=== PATIENT | male | born 1980 | race Caucasian/White ===

== ENCOUNTER → 2020-11-02 15:58 | Outpatient (CLI) | payer BC, SELFPAY ==
--- NOTE | ~2020-11-02 | XR_ITS ---
XR hand LT min 3V 11/02/2020 16:16 INDICATION: Left fourth finger pain PROCEDURE: 3 views left hand COMPARISON: No prior studies for comparison. FINDINGS: Fracture, dislocation or subluxation is not identified. The soft tissues appear within norm al limits. No foreign bodies are identified. IMPRESSION: 1: NO ACUTE BONE OR JOINT ABNORMALITY IDENTIFIED. Reviewed, dictated and finalized at location B.
== END ==
PROVIDERS: PCP Internal Medicine; Visit Provider Clinical Nurse Specialist
DX: M79.645 Pain in left finger(s) (principal)
CPT/HCPCS: 73130

== ENCOUNTER → 2020-11-20 09:18 | Outpatient (CLI) | payer BC, SELFPAY ==
--- NOTE | ~2020-11-20 | MR_ITS ---
EXAMINATION: MR hand LT wo con DATE: 11/20/2020 10:07 INDICATION: Left hand fourth digit pain and swelling. TECHNIQUE: Magnetic resonance imaging (MRI) of the left hand was performed without intravenous contra st. Sequences included axial, coronal, and sagittal T2-weighted FS FSE and T1-weighted FSE. COMPARISON: Left hand radiographs 11/02/2020 FINDINGS: Bone alignment is normal. No fracture. There is a 5 mm lesion of increased T2-weighted sign al intensity in trapezoid, likely a benign fibrous lesion. The joint spaces are normal. At the fourth digit, there is bowstringing of the flexor digitorum profundus tendon at the diaphysis of the middle phalanx. The tendon substance is normal. The A4 andres demonstrates thickening and increased signal in this area. The extensor tendons are normal. IMPRESSION: 1. A4 andres injury of the left hand fourth digit with bowstringing of the flexor digitorum profundus tendon. Reviewed, dictated and finalized at location A. IMPRESSION: 1. A4 andres injury of the left hand fourth digit with bowstringing of the flex or digitorum profundus tendon.
== END ==
PROVIDERS: PCP Internal Medicine; Visit Provider Clinical Nurse Specialist
DX: M79.645 Pain in left finger(s) (principal)
CPT/HCPCS: 73218

== ENCOUNTER 2021-03-08 07:30 | Outpatient (RCR) | payer BC, SELFPAY ==
--- NOTE | 2021-03-08 09:00 | OTOPEVAL ---
OCCUPATIONAL THERAPY INITIAL EVALUATION/DISCHARGE SUMMARY: 03/08/2021 Thank you for referring Kartik Patel to [facility].? As noted below, skilled OT not indicated at this time. Plan to discharge patient independent with HEP material. Please review, sign, date and return this plan of care JUDY. I agree with and certify that the following plan of care is medically necessary. Referring Physician Date Attending Provider: Ada Hagen NP *OT Outpatient Evaluation/Discharge Summary Start: 03/07/21 07:43 Freq: Status: Active Protocol: Document 03/08/21 07:40 KJL (Rec: 03/08/21 09:00 KJL [id number]) Therapy Assessment Status Assessment Status Assessment Status Evaluation/Discharge Summary Evaluation Information Problem Diagnosis A4 Andres injury with bowstringing Onset 09/2020 Additional Evaluation Detail Patient reports was attempting to lift the lid of a shop vac and felt a pulling sensation in finger with subsequent swelling and pain to L digit IV. Patient had a MRI of hand completed in November of 2020 which showed A4 andres injury with flexor digitorum profundus bowstringing. Patient immobilized digit IV by anselmo taping to digit III for 6 weeks. Subjective Information Since immobilizing finger in Query Text:As Reported By Patient/ Elizabeth for 6 weeks has Family decreased swelling and pain decreased. Patient since immobilizing has experienced stiffness and soreness in digit IV and digit III. Patient reports difficulties with gripping, holding handles of bike or stroller, functional tasks that involve gripping/grasping. 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
== END 2021-05-27 08:12 | disposition home or self-care (01) ==
LOC: ANHOT 07:30
PROVIDERS: PCP Internal Medicine; Visit Provider Nurse Practitioner
DX: M79.645 Pain in left finger(s) (principal)
CPT/HCPCS: 97110; 97165

== ENCOUNTER 2021-12-12 07:45 | Outpatient (RCR) | payer BC, SELFPAY ==
--- NOTE | 2021-10-28 08:32 | PTOPEVAL ---
Thank you for referring Kartik Patel to [facility].? The patient is scheduled to be seen for therapy?2 x/week for 4 weeks. Please review, sign, date and return this plan of care JUDY. I agree with and certify that the following plan of care is medically necessary. Referring Physician Date Attending Provider: Ada Hagen NP Diagnosis right shoulder pain Onset 06/30 Subjective Information He c/o joint popping with Query Text:As Reported By Patient/ reaching motion. He has pain Family with lifting objects, sleeping on right shoulder. He has been applying Voltaren and pain patches to his shoulder with mild relief. 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 He has pain with use of right UE on mouse if not supported. Increased symptoms with increased heavier activities of yardwork, lifting heavier objects at home. He was going to the gym for a few months for cardio and UE resistance training. No stretching. He stopped a few weeks ago. Pain Assessment right shoulder Reported Pain Level 4 Pain Description Sharp,Tender on Palpation Pain Frequency Chronic Lowest Pain Intensity 3 Greatest Pain Intensity 6 Pain Aggravating Factors Exercise/Activity,Lifting, Prolonged Position Upper Extremity Range of Motion Scapular/ Shoulder Range of Motion Right Shoulder Flexion - Active 164 Shoulder Extension - Active 42 Shoulder Abduction - Active 154 Shoulder Medial Rotation - Active 70 Shoulder Lateral Rotation - Active 90 Left Shoulder Flexion - Active 162 Shoulder Extension - Active 50 Shoulder Abduction - Active 165 Shoulder Medial Rotation - Active 75 Shoulder Lateral Rotation - Active 85 Upper Extremity Muscle Strength Testing General Upper Extremity Strength Gross Upper Extremity Strength Comments grossly 5/5 except right shoulder flex: 4/5 pain noted on right with MMT ceci middle trap: 3/5, right lower trap: 2+/5, left lower trap: 2-/5 Muscle Length Testing Muscle Length Testing Latissmus Dorsi Muscle Length (R) Severe Tightness,(L) Severe Tightness Pectoralis Major Mus
--- NOTE | 2021-11-05 07:28 | PCPTNOTE ---
Patient called & cancelled scheduled appointment this date due to being sick.
--- NOTE | 2021-11-28 17:53 | PTOPEVAL ---
Physical Therapy Progress Note Thank you for referring Kartik Patel to [facility].? Pt referred to therapy due to ceci shoulder pain. He has attended 8 therapy visits to address his shoulder pain and limitations. As result of therapy services he demonstrates improved shoulder motion to WNL on right, improved strength and improve pain and function. He demonstrates compliance and deborah progression of his HEP. He is progressing towards his therapy goals. Shoulder Pain and Disability and Index (SPADI): 20% impaired at eval and 16% impaired at update. Assessment: He requires additional skilled therapy services to address his remaining scapular weakness, posture impairments and movement impairments. He is progressing towards his goals. He requires additional therapy to achieve his remaining goals and function. The patient is scheduled to be seen for therapy?2x/week for 2 weeks. Please review, sign, date and return this plan of care JUDY. I agree with and certify that the following plan of care is medically necessary. Referring Physician Date Attending Provider: Ada Hagen NP Diagnosis right shoulder pain Onset 06/30 Subjective Information He reports he cont to have Query Text:As Reported By Patient/ pain with sleeping directly on Family the right GH joint and UE. He cont to have popping of his shoulder, just not the same intensity. He has problems with reaching motion and lifting objects overhead. He denies use of voltrane and pain patches to his shoulder. He denies pain with use of right UE on mouse. Pain Assessment Right Shoulder(s) Reported Pain Level 0 Pain Description Soreness Lowest Pain Intensity 0 Greatest Pain Intensity 3 Pain Aggravating Factors Lifting,Prolonged Position Upper Extremity Range of Motion Scapular/ Shoulder Range of Motion Right Shoulder Flexion - Active 172 Shoulder Extension - Active 55 Shoulder Abduction - Active 165 Shoulder Medial Rotation - Active 70 Shoulder Lateral Rotation - Active 90 Upper Extremity Muscle Strength Testing General Upper Extremity Strength Gross Upper Extremity Strength Comments grossly 5/5 all right shoulder motion pain noted on right with MMT ceci middle trap: 3+/5, right lower trap: 3-/5, left lower trap: 3-/5 Palpation Assessment Palpation mild tenderness of acromion and deltoid attachment no other tenderness of left shoulder shoulder and scapular region PT Clinical Summary Pt referred t
--- NOTE | 2021-12-12 08:46 | PTOPEVAL ---
Physical Therapy Discharge Summary Thank you for referring Kartik Patel to [facility].? He was referred to therapy due to ceci shoulder pain. He has attended 12 therapy visits. As a result of skilled therapy services he demonstrates improved shoulder motion to WNL, 5/5 shoulder strength and improved scapular stability. He demonstrates improve body awareness and tissue restrictions of chest/UE and upper back region. He has been provided a HEP and demonstrates understanding and compliance with stretching and strengthening exercises. He has partially achieved his therapy goals at this time. Will DC skilled therapy services with recommendations he continue with his HEP. Please review, sign, date and return this discharge summary JUDY. I agree with and certify that the following plan of care is medically necessary. Referring Physician Date Attending Provider: Ada Hagen NP Diagnosis right shoulder pain Onset 06/30 Subjective Information He reports cont soreness with Query Text:As Reported By Patient/ prolonged UE activities. Family Improved popping of right shoulder. Cont pain with prolonged sleeping on right shoulder, but less intense. INcreased pain with prolonged overhead and UE activities with yardwork. Pain Assessment Right Shoulder(s) Reported Pain Level 1 Pain Description Soreness Lowest Pain Intensity 0 Greatest Pain Intensity 3 Pain Aggravating Factors Exercise/Activity Upper Extremity Range of Motion Scapular/ Shoulder Range of Motion Right Shoulder Flexion - Active 170 Shoulder Extension - Active 55 Shoulder Abduction - Active 170 Shoulder Medial Rotation - Active 70 Shoulder Medial Rotation - Active T7Reach Behind the Back Shoulder Lateral Rotation - Active 90 Upper Extremity Muscle Strength Testing Gross Upper Extremity Strength Comments grossly 5/5 all right shoulder motion pain noted on right with MMT ceci middle trap: 4/5, ceci lower trap: 3+/5 Muscle Length Testing Latissmus Dorsi Muscle Length (R) Moderate Tightness,(L) Moderate Tightness Pectoralis Major Muscle Length (R) Mild Tightness,(L) Mild Tightness Pectoralis Minor Muscle Length (R) Severe Tightness,(L) Severe Tightness PT Clinical Summary Pt referred to therapy due to ceci shoulder pain. He has attended 12 therapy visits. As a result of skilled therapy services he demonstrates improved shoulder motion to
== END 2021-12-13 09:41 | disposition home or self-care (01) ==
LOC: ANHPT 07:45
PROVIDERS: PCP Internal Medicine; Visit Provider Nurse Practitioner
DX: M25.511 Pain in right shoulder (principal)
CPT/HCPCS: 97035; 97110; 97112; 97140; 97161; 97530

== ENCOUNTER → 2022-06-19 08:14 | Outpatient (CLI) | payer BC, SELFPAY ==
--- NOTE | ~2022-06-19 | XR_ITS ---
EXAMINATION: XR shoulder LT min 2V INDICATION: Left shoulder pain TECHNIQUE: Four views of the left shoulder are submitted. COMPARISON: None FINDINGS: Normal alignment. No fracture. There is mild osteoarthritis of the acromioclavicular joint. The glenohumeral joint is unremarkable. Surgical clips project over the upper chest. Soft tissues ar e unremarkable. IMPRESSION: 1. No acute osseous abnormality. Reviewed, dictated and finalized at location B. ARCH PROJECT MANAGER
--- NOTE | ~2022-06-19 | XR_ITS ---
EXAMINATION: XR shoulder RT min 2V INDICATION: Right shoulder pain TECHNIQUE: Four views of the right shoulder are submitted. COMPARISON: None FINDINGS: Normal alignment. No fracture. There is mild osteoarthritis of the acromioclavicular joint. The glenohumeral joint is unremarkable. Soft tissues are unremarkable. IMPRESSION: 1. No acute osseous abnormality. Reviewed, dictated and finalized at location B. GER COMPLIANCE
== END ==
PROVIDERS: PCP Clinical Nurse Specialist; Visit Provider Clinical Nurse Specialist
DX: M25.511 Pain in right shoulder (principal); M25.512 Pain in left shoulder
CPT/HCPCS: 73030

== ENCOUNTER → 2022-07-08 07:02 | Outpatient (CLI) | payer BC, SELFPAY ==
--- NOTE | ~2022-07-08 | MR_ITS ---
EXAMINATION: MR shoulder RT wo con DATE: 07/08/2022 07:37 INDICATION: Right shoulder pain. TECHNIQUE: Magnetic resonance imaging (MRI) of the right shoulder was performed without intravenous c ontrast. Sequences included axial PD-weighted FS FSE, coronal oblique PD-weighted FS FSE and T2-weigh jayashree FS FSE, and sagittal oblique T2-weighted FS FSE and T1-weighted FSE. COMPARISON: Right shoulder radiographs 06/19/2022 FINDINGS: Coracoacromial arch: The acromion undersurface is curved in morphology (type II). There is severe acromioclavicular joint osteoarthritis including inferiorly directed osteophytes. There is mild subacromial/subdeltoid bursit is. Rotator cuff: There is mild supraspinatus and infraspinatus tendinopathy. Teres minor tendon is normal. Subscapular is tendon is normal. There is no fatty atrophy of the rotator cuff muscle bellies. Biceps tendon and glenoid labrum: Biceps tendon is in bicipital groove. Intra-articular biceps tendon is normal. The glenoid labrum is normal. Fluid: There is no glenohumeral joint effusion. Bones/cartilage: Glenoid cartilage is normal. Humeral head cartilage is normal. IMPRESSION: 1. Mild rotator cuff tendinopathy. No tear. 2. Severe acromioclavicular joint osteoarthritis. 3. Mild subacromial/subdeltoid bursitis. Reviewed, dictated and finalized at location A. M BENEFIT SPECIALIST
== END ==
PROVIDERS: PCP Internal Medicine; Visit Provider Clinical Nurse Specialist
DX: M19.011 Primary osteoarthritis, right shoulder (principal); M75.51 Bursitis of right shoulder
CPT/HCPCS: 73221

== ENCOUNTER 2022-07-30 07:30 | Outpatient (CLI) | payer BC, SELFPAY ==
--- NOTE | 2022-07-30 07:40 | ECHO_ITS ---
Patient Info Name: Kartik Patel Age: 42 years : 1980 Gender: Male Ht: 71 in Wt: 185 lbs BSA: 2.06 m2 HR: 71 bpm BP: 147 / 93 mmHg Heart Rhythm: Sinus Rhythm Technical Quality: Good Exam Date: 07/30/2022 7:44 AM Exam Location: [facility] Patient Status: Outpatient Admit Date: 07/30/2022 Staff Ordering Physician: Aminata Ignacio NP Fifth Hand: Yoly Milton RDCS Attending Provider: Aminata Ignacio NP Referring Physician: Mateus GANN; Exam Type: CA echo doppler color flow Study Info Indications R00.0 - Tachycardia, unspecified Complete two-dimensional, color flow and Doppler transthoracic echocardiogram is performed. Summary 1. Complete two-dimensional, color flow and Doppler transthoracic echocardiogram is performed. 2. Left ventricular chamber dimension is normal. 3. Linear echogenicity from mid LV septum to mid lateral wall. 4. Left ventricular systolic function is normal, estimated at 60-65%. 5. The left ventricular diastolic function is grade I diastolic dysfunction. 6. E/e' 9 is minimally elevated. 7. There is trace tricuspid valve regurgitation. 8. No pulmonary hypertension, estimated pulmonary arterial systolic pressure is 27 mmHg. Left Ventricle E/e' 9 is minimally elevated. Linear echogenicity from mid LV septum to mid lateral wall. Left ventricular chamber dimension is normal. Left ventricular systolic function is normal, estimated at 60-65%. The left ventricular diastolic function is grade I diastolic dysfunction. Right Ventricle Right ventricular systolic function is normal and with normal TAPSE 2.6 cm. Right ventricular chamber dimension is normal. Left Atria Left atrial chamber dimension is normal. Right Atria Right atrial chamber dimension is normal. Aortic Valve The aortic valve is trileaflet. There is no aortic valve stenosis. There is no aortic valve regurgitation. Pulmonic Valve There is no pulmonic regurgitation. Mitral Valve There is no mitral valve stenosis. There is no mitral valve regurgitation. Tricuspid Valve There is trace tricuspid valve regurgitation. No pulmonary hypertension, estimated pulmonary arterial systolic pressure is 27 mmHg. Pericardium/Pleural There is no pericardial effusion. Inferior Vena Cava Normal inferior vena cava with >50% collapse upon inspiration consistent with normal right atrial pressure, 5 mmHg. Aorta The aortic root size at the sinus of Valsalva is normal. Left Ventricular Outflow Tract Name Value Normal LVOT 2D LVOT Diameter 2.1 cm LVOT Doppler LVOT Peak Gradient 2 mmHg LVOT Mean Gradient 1 mmHg LVOT VTI 13 cm LVOT VTI/AV VTI Ratio 0.6 LVOT Stroke Volume 43 ml LVOT CO 3.6 l/min LVOT CI 1.7 l/min/m2 Pulmonic Valve Name Value Normal
== END 2022-07-30 07:31 | disposition home or self-care (01) ==
LOC: ANHCARD 07:33
PROVIDERS: PCP Internal Medicine; Visit Provider Nurse Practitioner
DX: R00.0 Tachycardia, unspecified (principal)
CPT/HCPCS: 93306

== ENCOUNTER 2023-01-21 15:58 | Emergency (ER) | payer OTHER, BC, SELFPAY | END 2023-01-21 16:45 | disposition home or self-care (01) | LOC: EXPGOSH 16:19 | PROVIDERS: Emergency Provider Nurse Practitioner; PCP Internal Medicine | DX: M54.50 Low back pain, unspecified (principal); V43.52XA Car driver injured in collision with other type car in traffic accident, initial encounter; E03.9 Hypothyroidism, unspecified | CPT/HCPCS: 99213; G0463 ==

== ENCOUNTER → 2023-01-27 15:11 | Outpatient (CLI) | payer BC, SELFPAY ==
--- NOTE | ~2023-01-27 | XR_ITS ---
Cervical Spine: AP, lateral, open-mouth views Clinical History: Pain Findings: The normal lordotic curve is maintained. The vertebral bodies and posterior elements appea r intact. There is moderate to advanced degenerative disc narrowing at C6-C7. Pre-vertebral soft tiss ues are unremarkable. Impression: Moderate to advanced degenerative disc narrowing at C6-C7. Reviewed, dictated and finalized at [facility]. Impression: Moderate to advanced degenerative disc narrowing at C6-C7.
--- NOTE | ~2023-01-27 | XR_ITS ---
Lumbosacral Spine: AP and lateral views Clinical History: Pain Findings: The normal lordotic curve is maintained. The vertebral bodies and posterior elements are i ntact. The intervertebral disc spaces are preserved. There is mild facet arthropathy at the lower kevon mbar spine. The sacroiliac joints are normally outlined. Impression: Mild facet joint degenerative change, as above. Reviewed, dictated and finalized at location . Impression: Mild facet joint degenerative change, as above.
== END ==
PROVIDERS: PCP Internal Medicine; Visit Provider Clinical Nurse Specialist
DX: M50.323 Other cervical disc degeneration at C6-C7 level (principal); M51.36 Other intervertebral disc degeneration, lumbar region
CPT/HCPCS: 72040; 72100

== ENCOUNTER → 2023-02-02 15:34 | Outpatient (CLI) | payer BC, SELFPAY ==
--- NOTE | ~2023-02-02 | MR_ITS ---
MRI of the cervical spine Clinical History: Degenerative disc disease Technique: Axial T2-weighted and gradient images, and sagittal T1-weighted, T2-weighted, and STIR luis ges were acquired. Findings: No fracture or subluxation seen. Vertebral bodies maintain normal height and alignment. No suspicious bone marrow signal identified. At C2-C3, there is no disc bulge or herniation. No spinal canal stenosis, cord compression, or neural foraminal narrowing. At C3-C4, there is no disc bulge or herniation. No spinal canal stenosis, cord compression, or right neural foraminal narrowing. Probable minimal left neural foraminal narrowing as compared to the right side, with minimal left facet arthropathy. At C4-C5, there is no disc bulge or herniation. No spinal canal stenosis, cord compression, or neural foraminal narrowing. At C5-C6, there is disc osteophyte complex, resulting in mild canal stenosis and minimal flattening t he ventral cord. There is mild bilateral neural foraminal narrowing, right worse than left. At C6-C7, there is small disc bulge, resulting in minimal canal stenosis and possible minimal flatten ing the ventral cord. There is probable minimal bilateral neural foraminal narrowing. No abnormal signal seen in the spinal cord itself. Paravertebral soft tissues are unremarkable. Impression: Disc bulges/disc osteophyte complexes at C5-C6 and C6-C7, resulting in mild canal stenosis and probab le minimal flattening of the ventral cord at these levels. Probable mild bilateral neural foraminal n arrowing at these levels. Reviewed, dictated and finalized at [facility]. Impression: Disc bulges/disc osteophyte complexes at C5-C6 and C6-C7, resulting in mild can al stenosis and probable minimal flattening of the ventral cord at these levels . Probable mild bilateral neural foraminal narrowing at these levels.
== END ==
PROVIDERS: PCP Internal Medicine; Visit Provider Clinical Nurse Specialist
DX: M50.322 Other cervical disc degeneration at C5-C6 level (principal); M50.223 Other cervical disc displacement at C6-C7 level
CPT/HCPCS: 72141

== ENCOUNTER 2023-12-22 14:02 | Emergency (ER) | payer BC, SELFPAY ==
[2023-12-22 14:13] VITALS: BP 133/87; PULSE 120; RESP 16; TEMP 36.6; O2SAT 99
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
== END 2023-12-22 14:42 | disposition home or self-care (01) ==
PROVIDERS: Emergency Provider Registered Nurse; PCP Internal Medicine
DX: U07.1 COVID-19 (principal); E03.9 Hypothyroidism, unspecified; Z85.72 Personal history of non-Hodgkin lymphomas; Z98.52 Vasectomy status
CPT/HCPCS: 87426; 87804; 99213; G0463

== ENCOUNTER 2024-09-15 08:39 | Outpatient (CLI) | payer BC, SELFPAY ==
--- NOTE | ~2024-09-15 | US_ITS ---
EXAMINATION: US soft tissue abdomen, US soft tissue groin LT DATE: 09/15/2024 08:59 INDICATION: Periumbilical pain and left lower quadrant pain TECHNIQUE: Multiple grayscale and Doppler ultrasound images of the regions of concern along the periu mbilical and infraumbilical anterior abdominal wall and at the left groin were obtained. COMPARISON: None FINDINGS: No evident umbilical, ventral or left inguinal hernias. There is a 7 mm hyperechoic nodule in the sub cutaneous tissues at the left groin likely representing echogenic central fatty hilum of a small left inguinal lymph node. No pathologically enlarged lymph nodes or abnormal masses or fluid collections identified at the left groin along the periumbilical abdominal wall. IMPRESSION: 1. Unremarkable studies with no evident hernia or other abnormal masses or fluid collections identifi ed at the left groin or left periumbilical or infraumbilical abdominal wall regions of concern. Reviewed, dictated and finalized at location A. STONECUTTER IMPRESSION: 1. Unremarkable studies with no evident hernia or other abnormal masses or flui d collections identified at the left groin or left periumbilical or infraumbili amos abdominal wall regions of concern.
== END 2024-09-15 08:40 | disposition home or self-care (01) ==
LOC: GOSHIMG 08:39
PROVIDERS: PCP Clinical Nurse Specialist; Visit Provider Clinical Nurse Specialist
DX: R10.32 Left lower quadrant pain (principal)
CPT/HCPCS: 76705; 76882

== ENCOUNTER 2024-11-15 12:45 | Outpatient (CLI) | payer BC, SELFPAY ==
--- NOTE | ~2024-11-15 | CT_ITS ---
CT of the Abdomen and Pelvis: Indication: Abdominal pain Technique: 2.5 mm axial scans were obtained through the abdomen and pelvis following intravenous adm inistration of 100 cc of Omnipaque 350. Dose reduction technique was used on this scan by utilizing a utomated exposure control and iterative reconstruction technique. The dose-length product (DLP) was 6 63.79 mGy-cm. Findings: Scans through the lung bases are unremarkable. The liver, spleen, pancreas, gallbladder, adrenals and kidneys are within normal limits. No evidence of aortic aneurysm. No lymphadenopathy. No bowel obstruction or bowel wall thickening. There is no evidence to suggest acute appendicitis. Images through the pelvis were performed. Urinary bladder unremarkable. No pelvic mass seen. No ascit es. Impression: No significant abnormalities seen. Reviewed, dictated and finalized at location . Impression: No significant abnormalities seen.
== END 2024-11-15 12:46 | disposition home or self-care (01) ==
LOC: MICIMG 12:45
PROVIDERS: PCP Clinical Nurse Specialist; Visit Provider Clinical Nurse Specialist
DX: R10.32 Left lower quadrant pain (principal); R10.33 Periumbilical pain; C85.90 Non-Hodgkin lymphoma, unspecified, unspecified site
CPT/HCPCS: 74177; Q9967